=== PATIENT | male | born 1955 | race Caucasian/White ===

== ENCOUNTER 2020-11-29 20:26 | Day surgery (SDCO) | payer OTHER ==
[2020-11-29 20:56] LABS: BASOPHIL 0.7 % (0-2); EOSINOPHIL 5.1 % (0-7); HCT 46.3 % (42.0-52.0); HGB 15.8 g/dl (13.2-18.0); LYMPHOCYTE 31.4 % (15-48); MCH 32.2 pg (25.0-31.0); MCHC 34.1 g/dL (32.0-36.0); MCV 94.3 fL (78.0-100.0); MONOCYTE 8.4 % (0-12); MPV 9.8 fL (6.0-9.5); NEUTROPHIL 54.1 % (41-80); NRBC 0; PLT 221 K/uL (150-400); RBC 4.91 M/uL (4.70-6.00); RDW 13.4 % (11.5-14.0); WBC 8.8 K/uL (4.0-10.5)
[2020-11-29 21:00] LABS: INR 1.07 (0.9-1.2); PROTHROMBIN TIME 13.2 SECONDS (11.4-13.6)
[2020-11-29 21:02] LABS: D-DIMER 1.55 ug/mLFEU (0.00-0.41)
[2020-11-29 21:06] LABS: ALBUMIN 3.7 g/dL (3.4-5.0); BILIRUBIN - TOTAL 0.6 mg/dL (0.2-1.0); BUN/CREAT RATIO (CALC) 17.3 RATIO; CREATININE 1.33 mg/dL (0.67-1.17); GLOBULIN (CALCULATION) 3.8 g/dL; POTASSIUM 4.1 mmol/L (3.5-5.1); TOTAL PROTEIN 7.5 g/dL (6.4-8.2)
[2020-11-30 00:09] LABS: MAGNESIUM 2.1 mg/dL (1.8-2.4); PHOSPHORUS 3.6 mg/dL (2.6-4.7)
[2020-11-30] MEDS ORDERED: CLOPIDOGREL75 MG PO (00:51)
[2020-11-30] MEDS ORDERED: ZYRTEC10 M3 PO (00:51)
[2020-11-30] MEDS ORDERED: LOPRESSOR25 MG PO (00:52)
[2020-11-30] MEDS ORDERED: SINGULAIR10 MG PO (00:52)
[2020-11-30] MEDS ORDERED: PENICILLIN V P250 M1 PO (00:54)
[2020-11-30] MEDS ORDERED: ZOLOFT100 MG PO (00:56)
[2020-11-30] MEDS ORDERED: LISINOPRIL-HCT1 EACH PO (00:59)
[2020-11-30] MEDS ORDERED: ASPIRIN EC81 MG PO (01:00)
[2020-11-30] MEDS ORDERED: MOTRIN100 MG/5 M PO (01:02)
[2020-11-30 06:30] LABS: BASOPHIL 0.4 % (0-2); EOSINOPHIL 3.5 % (0-7); HCT 42.8 % (42.0-52.0); HGB 14.5 g/dl (13.2-18.0); LYMPHOCYTE 36.3 % (15-48); MCH 31.9 pg (25.0-31.0); MCHC 33.9 g/dL (32.0-36.0); MCV 94.3 fL (78.0-100.0); MONOCYTE 8.6 % (0-12); MPV 9.6 fL (6.0-9.5); NEUTROPHIL 50.8 % (41-80); NRBC 0; PLT 175 K/uL (150-400); RBC 4.54 M/uL (4.70-6.00); RDW 13.3 % (11.5-14.0); WBC 6.9 K/uL (4.0-10.5)
[2020-11-30 06:47] LABS: ALBUMIN 3.4 g/dL (3.4-5.0); BILIRUBIN - TOTAL 0.6 mg/dL (0.2-1.0); BUN/CREAT RATIO (CALC) 17.6 RATIO; CREATININE 1.42 mg/dL (0.67-1.17); GLOBULIN (CALCULATION) 2.8 g/dL; POTASSIUM 4.6 mmol/L (3.5-5.1); TOTAL PROTEIN 6.2 g/dL (6.4-8.2)
[2020-11-30 07:10] LABS: CKMB 0.7 ng/mL (0.0-3.6)
--- NOTE | 2020-11-30 08:16 | NUR ---
DR LOCKETT TOLD PATIENT THAT HE WOULD NOT SEE HIM UNLESS HE WAS TEST. PATIENT IS THINKING ABOUT IT.
--- NOTE | 2020-11-30 10:02 | NUR ---
PATIENT CAME TO DESK AND ASKED FOR HIS IV TO BE TOOK OUT, HE IS LEAVING. WAS UPSET ABOUT THE CARDIOLOGY. I INFORMED HIM THAT THE PROPOSAL ANALYST WAS LOOKING INTO THE ISSUE AND THAT I WOULD ADVISE HIM MOT TO LEAVE, HE DID NOT WANT TO HEAR IT. I TOLD HIM TO ATLEAST MAKE AN APPOINTMENT WITH HIS CARDIOLOGY TO BE SEEN SOON POSSIBLE. GINI YOON
--- NOTE | 2020-11-30 12:50 | NUR ---
RECEIVED A REFERRAL REGARDING PT. WANTED FINANCIAL INFORMATION. REFERRED INFORMATION TO YARA IN FINANCIAL. PT. LEFT AMA.
== END 2020-11-30 09:05 | disposition left against medical advice (07) ==
LOC: FER 20:26 → FMS 22:50
PROVIDERS: Emergency Medicine; Nurse Practitioner; ADMIT Internal Medicine
DX: R07.9 Chest pain, unspecified (principal); R06.02 Shortness of breath; I25.10 Atherosclerotic heart disease of native coronary artery without angina pectoris; I10 Essential (primary) hypertension; E78.5 Hyperlipidemia, unspecified; J44.9 Chronic obstructive pulmonary disease, unspecified; E66.9 Obesity, unspecified; Z68.37 Body mass index [BMI] 37.0-37.9, adult; Z53.29 Procedure and treatment not carried out because of patient's decision for other reasons; Z79.02 Long term (current) use of antithrombotics/antiplatelets; Z87.891 Personal history of nicotine dependence; Z79.2 Long term (current) use of antibiotics; Z79.82 Long term (current) use of aspirin; Z79.899 Other long term (current) drug therapy; Z94.81 Bone marrow transplant status; Z95.5 Presence of coronary angioplasty implant and graft
CPT/HCPCS: 36415; 71045; 71275; 80053; 80061; 82553; 83735; 83880; 84100; 84484; 85025; 85379; 85610; 93005; 94010; 94762; G0378; J1650; Q9967